=== PATIENT | male | born 1930 | race Caucasian/White ===

== ENCOUNTER → 2016-05-23 | Outpatient (CLI) | payer MEDICARE, OTHER ==
[2016-05-23 12:00] LABS: Urine Bilirubin Negative (Negative); Urine Color Yellow (Yellow); Urine Glucose Normal (Normal); Urine Ketone Negative (Negative); Urine Nitrite Negative (Negative); Urine Urobilinogen Normal (Negative)
[2016-05-23 12:06] LABS: Urine Blood 3+ /uL (Negative)
[2016-05-23 12:31] LABS: Albumin 4.2 g/dL (3.4-5.0); BUN/Creatinine Ratio 16.8; Bilirubin, Total 1.2 mg/dL (0.2-1.0); Calcium 9.1 mg/dL (8.5-10.1); Potassium 3.9 mmol/L (3.5-5.1); Total Protein 7.4 g/dL (6.4-8.2)
[2016-05-23 12:43] LABS: Bilirubin, Direct 0.4 mg/dL (0-0.2)
[2016-05-23 12:59] LABS: DEFINITIVE VIEW TRANSMISSION; Hematocrit 42.9 % (41.0-53.0); Hemoglobin 14.2 g/dL (13.5-17.5); Mean Corpuscular Hemoglobin 30.2 pg (28.0-32.0); Mean Corpuscular Hgb Conc. 33.2 g/dL (32.0-36.0); Mean Corpuscular Volume 90.9 fL (80.0-100.0); Mean Platelet Volume 11.7 fL (7.4-10.4); Platelet Count (auto) 31 10^3/uL (140-450); SUSPECT VIEW TRANSMISSION; White Blood Cell 29.2 10^3/uL (4.4-10.8)
[2016-05-23 14:07] LABS: Metamyelocytes % 0; Myelocytes % 0; Promyelocytes % 0; Reactive Lymphocytes 0
[2016-05-23 15:41] LABS: Platelet Estimate Decreased
[2016-05-23 15:42] LABS: Burr Cells MODERATE; Tear Drop Cells FEW
== END | disposition home or self-care (01) ==
LOC: LAB 07:42
PROVIDERS: ATTEND Internal Medicine Cardiovascular Disease
DX: I10 Essential (primary) hypertension (principal); E78.00 Pure hypercholesterolemia, unspecified; K74.1 Hepatic sclerosis; E11.9 Type 2 diabetes mellitus without complications; R97.20 Elevated prostate specific antigen [PSA]; R53.81 Other malaise; E03.9 Hypothyroidism, unspecified; D64.9 Anemia, unspecified; E55.9 Vitamin D deficiency, unspecified; N39.0 Urinary tract infection, site not specified
CPT/HCPCS: 36415; 80048; 80061; 80076; 81003; 82306; 83036; 84153; 84403; 84443; 85007; 85027

== ENCOUNTER 2016-06-18 21:08 | Emergency (ER) | payer MEDICARE, OTHER ==
[~2016-06-18] VITALS: Ht 177.8 cm; Wt 72.6 kg
[2016-06-18 22:18] LABS: DEFINITIVE VIEW TRANSMISSION; Hematocrit 37.9 % (41.0-53.0); Hemoglobin 12.5 g/dL (13.5-17.5); Mean Corpuscular Hemoglobin 30.4 pg (28.0-32.0); Mean Corpuscular Hgb Conc. 32.9 g/dL (32.0-36.0); Mean Corpuscular Volume 92.2 fL (80.0-100.0); Mean Platelet Volume 10.4 fL (7.4-10.4); Platelet Count (auto) 29 10^3/uL (140-450); Red Cell Distribution Width 15.3 % (11.6-16.0); SUSPECT VIEW TRANSMISSION
[2016-06-18 22:24] LABS: Partial Thromboplastin Time 32.7 sec (22.64-33.71)
[2016-06-18 22:27] LABS: Albumin 3.9 g/dL (3.4-5.0); Anion Gap 7 (5-15); Aspartate Aminotransferase 30 U/L (15-37); BUN/Creatinine Ratio 16.7; Blood Urea Nitrogen 22 mg/dL (7-18); Calcium 8.2 mg/dL (8.5-10.1); Carbon Dioxide 25 mmol/L (21-32); Chloride 109 mmol/L (98-107); GFR African American 66 mL/min; GFR Non-African American 55 mL/min; Glucose 108 mg/dL (74-106); Potassium 4.1 mmol/L (3.5-5.1); Sodium 141 mmol/L (136-145)
[2016-06-18 22:32] LABS: Alkaline Phosphatase 60 U/L (45-117); Bilirubin, Total 0.8 mg/dL (0.2-1.0); Total Protein 6.5 g/dL (6.4-8.2)
[2016-06-18 22:39] LABS: INR 1.54 (0.9-1.15); Prothrombin Time 15.9 sec (9.37-12.3)
[2016-06-18 22:41] LABS: B-Type Natriuretic Peptide 149.43 pg/mL (0-100); Temperature: 20.5 C (20.0-25.0)
[2016-06-18] MEDS ORDERED: TETANUS-DIPTH-ACEL PERTUSSIS 0.5ML SYRG IM ONE (23:00)
[2016-06-18] MEDS ORDERED: HYDROmorphone HCL 2 MG/ML VL IV ONE (23:00)
[2016-06-18] MEDS ORDERED: SODIUM CHLORIDE 0.9% 500 ML IV ONE (23:00)
[2016-06-18] MEDS ORDERED: ceFAZolin 1GM/50ML D5W 100 ML IV ONE (23:00)
[2016-06-18] MEDS ORDERED: ONDANSETRON HCL 4 MG/2 ML VIAL IV ONE (23:00)
[2016-06-18 23:13] LABS: White Blood Cell 75.3 10^3/uL (4.4-10.8)
[2016-06-18 23:14] LABS: Promyelocytes % 0; Reactive Lymphocytes 0
[2016-06-19 00:37] LABS: Metamyelocytes % 2; Myelocytes % 2
[2016-06-19 00:46] LABS: Burr Cells MODERATE; Ovalocytes FEW; Platelet Estimate Decreased
[2016-06-19 01:00] VITALS: BP 161/81
== END 2016-06-19 01:27 | disposition critical access hospital (66) ==
LOC: ER 21:16
DX: S01.01XA Laceration without foreign body of scalp, initial encounter (principal); S36.899A Unspecified injury of other intra-abdominal organs, initial encounter; R31.9 Hematuria, unspecified; C95.90 Leukemia, unspecified not having achieved remission; Z23 Encounter for immunization; V49.49XA Driver injured in collision with other motor vehicles in traffic accident, initial encounter; Y93.89 Activity, other specified; Y99.8 Other external cause status; Y92.488 Other paved roadways as the place of occurrence of the external cause
CPT/HCPCS: 36415; 70450; 70486; 71250; 72125; 74176; 80053; 82962; 83880; 84484; 85007; 85027; 85610; 85730; 90471; 90715; 93005; 96365; 96375; 99285; J0690; J1170; J2405; J7030